=== PATIENT | male | born 2000 | race African-American/Black ===

== ENCOUNTER → 2022-10-28 11:04 | Outpatient (CLI) | payer OTHER, SELFPAY ==
--- NOTE | 2022-10-28 11:12 | DI.MRI.S_ITS ---
PROCEDURE: MR SHOULDER RT WO CON INDICATIONS: Dislocation of right acromioclavicular joint TECHNIQUE: Noncontrast oblique coronal T2 fast spin echo with fat saturation, oblique sagittal T1 spin echo and T2 fast spin echo with fat saturation, axial T1 spin echo and T2 fast spin echo with fat saturation through the shoulder. COMPARISON: [facility] Outside Film, CR, XR SHOULDER 2+ VIEWS RIGHT, 10/04/2022, 13:28. FINDINGS: Image quality: Excellent. Rotator cuff: The supraspinatus, infraspinatus, and subscapularis tendons appear intact throughout. Sagittal images demonstrate no rotator cuff muscle atrophy. Bones and bursae: There is significant marrow edema involving distal clavicle without definite fracture line. Widened acromioclavicular joint space is seen with moderate amount of fluid distending AC joint space. Depression of acromion in relation to distal clavicle is seen. Capsule and soft tissues: There is rupture of acromioclavicular ligaments and coracoid clavicular ligament Labrum is intact. The long head of the biceps tendon demonstrates normal location and morphology. The rotator interval appears normal, without fibrosis. The coracohumeral ligament is normal in thickness. IMPRESSION: 1. Finding is consistent with type 5 right AC separation with ruptured acromioclavicular ligaments and coracoid clavicular ligament, depression of acromion in relation to distal clavicle. Distal clavicular shaft edema without definite fracture line. 2. No other area of marrow signal abnormality. 3. Rotator cuff tendons and muscles are intact. 4. No evidence of right shoulder labral tear. Dictated by: Douglas Muñoz M.D. on 10/28/2022 at 13:06 Approved by: Douglas Muñoz M.D. on 10/28/2022 at 13:12
== END ==
PROVIDERS: PCP Family Medicine; Referring Provider Orthopaedic Surgery; Visit Provider Orthopaedic Surgery
DX: S43.101A Unspecified dislocation of right acromioclavicular joint, initial encounter (principal)
CPT/HCPCS: 73221